=== PATIENT | female | born 1940 | race Caucasian/White ===

== ENCOUNTER 2020-09-17 07:33 | Outpatient (CLI) | payer MEDICARE, SELFPAY ==
--- NOTE | ~2020-09-17 | MM_ITS ---
EXAMINATION: MM screening mert BI w jalen HISTORY: Screening mammogram TECHNIQUE: Craniocaudal and mediolateral oblique 3-D tomosynthesis images were obtained and synthetic 2-D images were generated. CAD analysis was submitted and interpreted. COMPARISON: 08/31/2019, 08/29/2018, 08/11/2017 bilateral digital screening mammogram examinations BREAST PARENCHYMAL COMPOSITION: The breasts are almost entirely fatty. FINDINGS: There is no evidence of suspicious mass, calcification, or architectural distortion to sugg est malignancy in either breast. There has been no suspicious interval change. IMPRESSION: 1. No mammographic evidence of malignancy. 2. Recommend routine screening mammography in one year. BI-RADS Category 1: Negative Reviewed, dictated and finalized at location A. ALT SMOOTHER
== END 2020-09-17 07:34 | disposition home or self-care (01) ==
PROVIDERS: PCP Internal Medicine; Visit Provider Obstetrics & Gynecology Gynecologic Oncology
DX: Z12.31 Encounter for screening mammogram for malignant neoplasm of breast (principal)
CPT/HCPCS: 77063; 77067

== ENCOUNTER 2021-12-04 14:33 | Outpatient (CLI) | payer MEDICARE, SELFPAY ==
--- NOTE | 2021-12-04 14:58 | ECHO_ITS ---
Patient Info Name: Sonay Smith Age: 81 years : 1940 Gender: Female Ht: 67 in Wt: 208 lbs BSA: 2.14 m2 HR: 55 bpm BP: 170 / 80 mmHg Heart Rhythm: Sinus Rhythm Technical Quality: Fair Exam Date: 12/04/2021 3:08 PM Exam Location: [facility] Patient Status: Outpatient Admit Date: 12/04/2021 Staff Ordering Physician: Maura Rashid PA-C Solar Technician: Karlee Nichols RDCS Attending Provider: Maura Rashid PA-C Exam Type: CA echo doppler color flow Study Info Indications G47.31 - PRIMARY SLEEP APNEA Complete two-dimensional, color flow and Doppler transthoracic echocardiogram is performed. Summary 1. Complete two-dimensional, color flow and Doppler transthoracic echocardiogram is performed. 2. Left ventricular chamber dimension is normal. 3. Left ventricular systolic function is normal, estimated at 65-70%. 4. There is no increased left ventricular wall thickness. 5. The left ventricular diastolic function is grade II diastolic dysfunction. 6. Right ventricular chamber dimension is mildly enlarged. 7. Left atrial chamber dimension is moderately enlarged. 8. Right atrial chamber dimension is mildly enlarged. 9. The mitral valve has thickened leaflets and calcified annulus. 10. There is mild tricuspid valve regurgitation. Left Ventricle Left ventricular chamber dimension is normal. Left ventricular systolic function is normal, estimated at 65-70%. There is no increased left ventricular wall thickness. The left ventricular diastolic function is grade II diastolic dysfunction. Right Ventricle Right ventricular chamber dimension is mildly enlarged. Right ventricular systolic function is normal. Left Atria Left atrial chamber dimension is moderately enlarged. Right Atria Right atrial chamber dimension is mildly enlarged. Atrial Septum Intact interatrial septum visualized by color flow imaging. Aortic Valve The aortic valve is trileaflet. There is mild aortic valve sclerosis. There is no aortic valve stenosis. There is trace aortic valve regurgitation. Pulmonic Valve The pulmonic valve is normal. There is no pulmonic valve stenosis. There is trace pulmonic regurgitation. Mitral Valve The mitral valve has thickened leaflets and calcified annulus. There is no mitral valve stenosis. There is trace mitral valve regurgitation. Tricuspid Valve The tricuspid valve leaflets are normal. There is no significant tricuspid valve stenosis. There is mild tricuspid valve regurgitation. No pulmonary hypertension, estimated pulmonary arterial systolic pressure is 31 mmHg. Pericardium/Pleural The pericardium appears normal. There is trivial pericardial effusion. Inferior Vena Cava Normal inferior vena cava with >50% collapse upon inspiration consistent with elevated right atrial pressure, 10 mmHg. Aorta The aortic root size at the sinus of Valsalva is normal. Left Ventricular Outflow Tract Name Value Normal LVOT 2D LVOT Diameter 2.0 cm LVOT Doppler LVOT Peak Gradient 10 mmHg LVOT Mean Gradient 4 mmHg
== END 2021-12-04 14:34 | disposition home or self-care (01) ==
LOC: ANHCARD 14:37
PROVIDERS: PCP Internal Medicine; Visit Provider Physician Assistant
DX: G47.31 Primary central sleep apnea (principal)
CPT/HCPCS: 93306

== ENCOUNTER 2022-03-02 12:19 | Observation (INO) | payer MEDICARE, SELFPAY ==
[2022-03-02] VITALS (27 sets, daily range): BP systolic 108–149; BP diastolic 64–91; PULSE 56–87; RESP 11–32; TEMP 36.4–37.2; O2SAT 80–100; BMI 32.9
--- NOTE | ~2022-03-02 | US_ITS ---
EXAMINATION: US carotid duplex BI DATE: 03/03/2022 11:01 INDICATION: Transient alteration of awareness TECHNIQUE: Grayscale, color Doppler, and pulsed Doppler images of the cervical carotid arteries were obtained. The degree of vessel stenosis is placed in one of the following categories: normal, <50%, 5 0-69%, >=70% but less than near-occlusion, near-occlusion, or total occlusion. Note that percent sten osis relative to normal distal artery lumen diameter is indirectly measured from velocity measurement s as described by Kentrell, et al. Radiology 2003; 229:340-346. COMPARISON: None. FINDINGS: RIGHT: The right common carotid artery (CCA) peak systolic velocity (PSV) is 99 cm/s. The right internal car otid artery (ICA) PSV is 121 cm/s. The right ICA end-diastolic velocity (EDV) is 35 cm/s. The right I CA/CCA PSV ratio is 1.2. Grayscale and color Doppler images yield an estimate of less than 50% diamet er reduction from plaque in the ICA. The external carotid artery (ECA) PSV is 158 cm/s. There is ante grade flow in the right vertebral artery. LEFT: The left CCA PSV is 92 cm/s. The left ICA PSV is 101 cm/s. The left ICA EDV is 33 cm/s. The left ICA/ CCA PSV ratio is 1.1. Grayscale and color Doppler images yield an estimate of less than 50% diameter reduction from plaque in the ICA. The ECA PSV is 167 cm/s. There is antegrade flow in the left verteb ral artery. IMPRESSION: 1. <50% stenosis in the right internal carotid artery. 2. <50% stenosis in the left internal carotid artery. Reviewed, dictated and finalized at location A.
--- NOTE | ~2022-03-02 | XR_ITS ---
EXAMINATION: XR chest 1V portable Exam Date/Time: 03/02/2022 14:45 CDT CLINICAL HISTORY: Syncope, DIZZY, NAUSEA Comparison: 06/07/2006. RESULT: Lines, tubes, and devices: Cholecystectomy clips. Lungs and pleura: Minimal bibasilar subsegmental opacities, usually attributed to atelectasis. Stabl e right hemidiaphragm elevation. Cardiomediastinal silhouette: Stable cardiomediastinal silhouette. Other: No acute osseous or upper abdominal finding. IMPRESSION: No acute cardiopulmonary process Reviewed, dictated and finalized at location K.
--- NOTE | ~2022-03-02 | CT_ITS ---
EXAMINATION: CT brain wo con INDICATION: Transient alteration of awareness COMPARISON: 04/07/2010 TECHNIQUE: Standard unenhanced head CT. The dose-length product (DLP) was 681.00 mGy-cm. The mA was a djusted according to patient size. Iterative reconstruction technique was employed. FINDINGS: There is no acute intraparenchymal hemorrhage. No evidence of mass lesion. No evidence of a cute infarction. There is mild periventricular and subcortical hypodensity probably related to small vessel ischemic disease. There is mild prominence of the sulci and ventricles related to cerebral atr ophy. Intracranial calcified cerebral atherosclerosis is noted. There are no extra-axial collections. There is no mass effect or midline shift. Changes in the globes are likely from ocular lens surgery. The visualized sinuses and mastoid air cells are well aerated. IMPRESSION: 1. No acute intracranial abnormality. 2. Age related findings. Reviewed, dictated and finalized at location A.
--- NOTE | 2022-03-02 12:23 | ECG_ITS ---
Measurements Intervals [place] Rate: 58 P: DC: 0 QRS: 22 QRSD: 110 T: 34 QT: 443 QTc: 438 Interpretive Statements ATRIAL FIBRILLATION WITH SLOW VENTRICULAR RESPONSE INTRAVENTRICULAR CONDUCTION DELAY LOW QRS VOLTAGE IN PRECORDIAL LEADS CANNOT RULE OUT SEPTAL INFARCT, AGE INDETERMINATE BORDERLINE T WAVE ABNORMALITY- DIFFUSE LEADS BASELINE ARTIFACT- I, III, AVL, V3 ABNORMAL ECG Electronically Signed On 03-02-2022 12:59:26 CDT by Say Sotelo D.O.
[2022-03-02 12:39] LABS: Basophils Percent Auto 0.5 % (0.2-1.2); Eosinophils Absolute Auto 0.1 K/mm3 (0-0.3); Eosinophils Percent Auto 0.8 % (0-4.4); Hematocrit 41.2 % (37.0-47.0); Hemoglobin 13.3 g/dL (12.0-15.0); Immature Granulocyte Absolute 0.02 K/mm3 (0.00-0.031); Immature Granulocyte Percent A 0.3 % (0-0.5); Lymphocytes Absolute Auto 0.89 K/mm3 (0.9-3.2); Lymphocytes Percent Auto 11.1 % (18.3-44.2); Mean Corpuscular HGB Conc 32.3 g/dl (32-36); Mean Corpuscular Hemoglobin 32.1 pg (26-34); Mean Corpuscular Volume 99.5 fl (80-100); Mean Platelet Volume 10.9 fl (7.4-10.4); Monocytes Absolute Auto 0.7 K/mm3 (0.1-0.6); Monocytes Percent Auto 8.4 % (2.6-8.5); Neutrophils Absolute Auto 6.3 K/mm3 (1.3-6.7); Neutrophils Percent Auto 78.9 % (45.5-73.1); Platelet Count Result 189 k/mm3 (150-375); Red Blood Count 4.14 M/mm3 (4.2-5.4); Red Cell Distribution Width 13.6 % (11.5-14.5)
[2022-03-02 12:52] LABS: Alanine Aminotransferase 16 U/L (6-35); Albumin Level 3.9 g/dL (3.5-5.1); Alkaline Phosphatase 76 U/L (38-126); Anion Gap 8 mmol/L (8-16); Aspartate Amino Transferase 24 U/L (14-36); Bilirubin,Total 1.2 mg/dL (0.2-1.3); Blood Urea Nitrogen 17 mg/dL (7-17); Calcium 8.8 mg/dL (8.4-10.2); Carbon Dioxide 27 mmol/L (22-30); Chloride 103 mmol/L (98-107); Estimated CRCL calculation 48 ml/min; Estimated Glomerular Filt Rate 60; Glucose 146 mg/dL (65-110); Sodium 138 mmol/L (137-145)
--- NOTE | 2022-03-02 14:24 | ED.SYNCOPE ---
HPI - Syncope General Chief Complaint: Syncope Stated Complaint: syncope, n/v Time Seen by Provider: 03/02/22 14:23 Source: patient and EMS Mode of arrival: EMS Limitations: no limitations History of Present Illness HPI narrative: Patient is 82 years old white female came by ambulance because of syncope and not feeling well. Patient went golfing this morning which is usual for her lasted for 1-1/2-hour, came back home was on a standing position making some food, felt lightheadedness and not feeling well, rested for few minutes then felt like she have to go to the bathroom, while sitting on the toilet started having more lightheadedness and dizziness, called for help then blacked out for about 1 minute. Subsequently patient developed generalized weakness dry heaves, vomiting at least 3 times. Currently feeling anxious about what happened. History of paroxysmal A. fib, had history of cardioversion. Related Data Home Medications Medication Instructions Recorded Confirmed flecainide 100 mg tablet 100 mg PO Q12H 05/07/20 09/08/21 ascorbate calcium (vitamin C) 500 500 mg PO DAILY 02/27/21 09/08/21 mg tablet carboxymethylcellulose sodium 1 drp EACH EYE BID 02/27/21 09/08/21 losartan 25 mg tablet 12.5 mg PO DAILY 02/27/21 09/08/21 Allergies Allergy/AdvReac Type Severity Reaction Status Date / Time nalbuphine Allergy Mild LOWER Verified 03/02/22 12:37 BLOOD PRESSURE adhesive Allergy Unknown BUMPS Verified 03/02/22 12:37 UNDER TAPE apixaban Allergy Unknown Unknown Verified 03/02/22 12:37 aspirin Allergy Unknown Unknown Verified 03/02/22 12:37 Beta-Blockers Allergy Unknown Unknown Verified 03/02/22 12:37 (Beta-Adrenergic Bloc celecoxib Allergy Unknown Unknown Verified 03/02/22 12:37 ibuprofen Allergy Unknown Unknown Verified 03/02/22 12:37 latex Allergy Unknown Unknown Verified 03/02/22 12:37 metoprolol Allergy Unknown Unknown Verified 03/02/22 12:37 naproxen Allergy Unknown Unknown Verified 03/02/22 12:37 NSAIDS (Non-Steroidal Allergy Unknown Unknown Verified 03/02/22 12:37 Anti-Inflamma rivaroxaban Allergy Unknown Unknown Verified 03/02/22 12:37 Sulfa (Sulfonamide Allergy Unknown Unknown Verified 03/02/22 12:37 Antibiotics) NONSTEROIDAL Allergy Unknown ASTHMA/RESP Uncoded 09/08/21 08:54 DISTRESS Review of Systems Review of Systems: All systems reviewed & are unremarkable except as noted in HPI and below PMFSH Past Medical History Medical History Atrial fib/flutter, transient cardioverted twice, last in 2017 Central sleep apnea GERD (gastroesophageal reflux disease) AGNES on CPAP Osteoarthritis of left knee Ovarian cancer Surgical History Surgical History History of cataract surgery History of cholecystectomy History of hysterectomy S/P T&A (status post tonsillectomy and adenoidectomy) Family History Family History Mother Family history of thyroid disease Family history of cardiac disorder Sibling Hypertension Father Family history of heart disease in male family member before age 55 Patient's father is Social History Social History Social History: , 2 grown children, grandchildren who visit often; plays golf, stays active. 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 Smoking status: Never smoker Gender identity (if verbalized by the patient): Female Exam Narrative: General appearance: Well-developed, well-nourished Skin: Normal color Head: Normocephalic, nontraumatic Eyes: Clear conjunctiva ENT: Oropharynx normal, ears normal, nose normal Neck: Supple, nontender Chest and respiratory: Airway patent, no respiratory distress, no accessory
[2022-03-02 15:32] LABS: Troponin I < 0.012 ng/mL (0.000-0.034)
[2022-03-02] MEDS: ENOXAPARIN 100 MG/ML SYRINGE 90 MG SUB-Q (15:38)
[2022-03-02 15:50] LABS: Appearance Urine Clear (Clear); Bilirubin Urine Negative (Negative); Blood Urine Negative (Negative); Color Urine Yellow (Yellow); Glucose Urine UA Negative (Negative); Ketones Urine Negative (Negative); Leukocyte Esterase Ur Negative LEU/UL (Negative); Nitrate Urine Negative (Negative); Protein Urine Negative (Negative); Urobilinogen Urine 0.2 mg/dL (<2.0)
[2022-03-02 15:59] LABS: Partial Thromboplastin Time 29.6 SECONDS (22.3-36.8); Prothrombin Time 13.2 Seconds (11.1-14.7)
[2022-03-02 16:00] LABS: Add Urine Microscopic? NO
[2022-03-02 16:28] LABS: Troponin I < 0.012 ng/mL (0.000-0.034)
--- NOTE | 2022-03-02 17:53 | PC.NURSE ---
This patient, Sonya Smith, was admitted to IMU Room 200-01 at 1742. Patient/family oriented to hospital policies and general routines including ID bracelet, bed and alarms, visiting hours, pain management, procedures, bathroom and other care routines, personal items, smoking policy, room service/diet, and visiting hours. Information on how to activate the Rapid Response Team has been discussed. Patient/Family are encouraged to report perceived risks to care and to ask questions if they do not understand what they are told or what they should do.
[2022-03-02 19:19] LABS: Troponin I < 0.012 ng/mL (0.000-0.034)
--- NOTE | 2022-03-02 20:21 | PM.IMHP ---
H&P: HPI History of Present Illness Date/Time: Patient was placed observation status for expected length of stay less than 23 hours for management, will plan to re-evaluate tomorrow for improvement. 03/02/22 20:21 Chief Complaint: Syncopal episode Narrative: Ms. Smith is a an 82-year-old female who presented emergency room with complaints of syncopal episode. 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 Patient states after she was golfing she was feeling fine and went home to make doubled legs. Patient states that she decided to take a warm shower took her shower and then decided to start making the double legs. Patient states she was still feeling very well and then all of a sudden she states that she ?just did not feel well. ? Patient states she sat down and still felt odd and decided to go down the cervantes. Patient states that she walked down the cervantes and decided she needed to have a bowel movement so she went to the bathroom and strained to have a bowel movement quickly because she was not feeling well and called out to her [id number] because she felt like she was going to pass out. Patient states that her [id number] came into the bathroom and grabbed her and she lost consciousness for less than 1 minute. Patient states she has never had episode like this before. Patient denied any chest pain, shortness a breath, or palpitations prior to the event. Patient denies any history of seizure disorder. Patient states after the event she did have multiple episodes of retching while in the EMS. Patient states she does have a known history of atrial fibrillation and has undergone cardioversion twice. Patient states as far she knows she had been in normal sinus rhythm. 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 Patient states that she follows with Cardiology on a routine basis. Review of Systems Review of Systems: A 12 point review of systems was completed patient all pertinent positive and negative per HPI the remainder are unremarkable. [facility] Past Medical History Medical History Atrial fib/flutter, transient cardioverted twice, last in 2017 Central sleep apnea GERD (gastroesophageal reflux disease) AGNES on CPAP Osteoarthritis of left knee Ovarian cancer Surgical History Surgical History History of cataract surgery History of cholecystectomy History of hysterectomy S/P T&A (status post tonsillectomy and adenoidectomy) Family History Family History (Updated 03/02/22 @ 18:06 by Cady Yoder RN) Mother Family history of cardiac disorder Congestive heart failure Pacemaker Sibling Hypertension Cerebrovascular accident Congestive heart failure Father Family history of heart disease in male family member before age 55 Patient's father is Acute myocardial infarction Other Family history of thyroid disease SVT (supraventricular tachycardia) Social History Social History Social History: , 2 grown children, grandchildren who visit often; plays golf, stays active. 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 Smoking status: Never smoker Alcohol intake: never Substance use: never Gender identity (if verbalized by the patient): Female Spiritual care concerns: No Meds Home Medications and Allergies Home Medications Medication Instructions Recorded Confirmed Type flecainide 100 mg tablet 100 mg PO Q12H 05/07/20 03/02/22 History ascorbate calcium (vitamin C) 500 500 mg PO DAILY 02/27/21 03/02/22 History mg tablet carboxymethylcellulose sodium 1 drp EACH EYE Q12H 02/27/21 03/02/22 History losartan 25
[2022-03-02] MEDS: WATER FOR IRRIGATION, STERILE 1,000 ML BOTTLE 1000 ML (20:53)
[2022-03-02] MEDS: ARTIFICIAL TEARS OPHTH SOLN 15 ML BOTTLE 1 DROP EACH EYE (20:54)
[2022-03-02] MEDS: FLECAINIDE ACETATE 100 MG TABLET PO (20:54)
[2022-03-03] VITALS (15 sets, daily range): BP systolic 105–139; BP diastolic 43–75; PULSE 46–75; RESP 20; TEMP 36.3–37.6; O2SAT 98–100
[2022-03-03 04:54] LABS: Anion Gap 3 mmol/L (8-16); Blood Urea Nitrogen 14 mg/dL (7-17); Calcium 8.2 mg/dL (8.4-10.2); Carbon Dioxide 30 mmol/L (22-30); Chloride 106 mmol/L (98-107); Estimated CRCL calculation 56 ml/min; Estimated Glomerular Filt Rate > 60; Glucose 101 mg/dL (65-110); Magnesium 2.1 mg/dL (1.6-2.3); Potassium 4.1 mmol/L (3.4-5.0); Sodium 139 mmol/L (137-145)
[2022-03-03 04:58] LABS: Basophils Absolute Auto 0.1 K/mm3 (0.0-0.1); Eosinophils Absolute Auto 0.1 K/mm3 (0-0.3); Eosinophils Percent Auto 1.3 % (0-4.4); Hematocrit 40.5 % (37.0-47.0); Hemoglobin 12.8 g/dL (12.0-15.0); Immature Granulocyte Absolute 0.02 K/mm3 (0.00-0.031); Immature Granulocyte Percent A 0.3 % (0-0.5); Lymphocytes Percent Auto 19.9 % (18.3-44.2); Mean Corpuscular HGB Conc 31.6 g/dl (32-36); Mean Corpuscular Hemoglobin 31.6 pg (26-34); Mean Platelet Volume 11.2 fl (7.4-10.4); Monocytes Absolute Auto 0.7 K/mm3 (0.1-0.6); Monocytes Percent Auto 10.5 % (2.6-8.5); Neutrophils Absolute Auto 4.7 K/mm3 (1.3-6.7); Platelet Count Result 197 k/mm3 (150-375); Red Blood Count 4.05 M/mm3 (4.2-5.4); Red Cell Distribution Width 13.6 % (11.5-14.5); White Blood Count 7.1 K/mm3 (4.5-10.0)
[2022-03-03] MEDS: ENOXAPARIN 100 MG/ML SYRINGE 90 MG SUB-Q (05:43)
[2022-03-03] MEDS: ARTIFICIAL TEARS OPHTH SOLN 15 ML BOTTLE 1 DROP EACH EYE (09:03)
[2022-03-03] MEDS: ASCORBIC ACID 500 MG TABLET PO (09:04)
[2022-03-03] MEDS: FLECAINIDE ACETATE 100 MG TABLET PO (09:04)
[2022-03-03] MEDS: LOSARTAN POTASSIUM 12.5 MG TABLET PO (09:04)
[2022-03-03] MEDS: CHOLECALCIFEROL 1,000 UNITS TABLET 1000 UNITS PO (09:04)
[2022-03-03 09:06] LABS: NT Pro B Type Natriuretic Pept 707 pg/mL (5-100)
--- NOTE | 2022-03-03 10:15 | PM.DS ---
DS: Admitting Diagnosis Discharge Date 03/03/22 1015 Admitting Diagnosis Syncope/recurrent Afib DS: Discharge Diagnosis Discharge Diagnosis (1) Syncope and collapse: Code(s): R55 - Syncope and collapse Status: Acute Assessment and Plan: Etiology unknown at this time. Syncope could have been secondary to a vasovagal episode since patient was having a bowel movement when it occurred. Unknown if patient could have also had atrial fibrillation with rapid ventricular response. At this point time cardiology has been consult and appreciate further recommendations. Will have orthostatic blood pressure and pulses performed every shift. Will resume patient's home medications. carotid doppler <50% stenosis bilaterally Restart on Xarelto Follow up with cards in 2-4 weeks (2) A-fib: Qualifiers: Atrial fibrillation type: paroxysmal Qualified Code(s): I48.0 - Paroxysmal atrial fibrillation Code(s): I48.91 - Unspecified atrial fibrillation Status: Acute Assessment and Plan: Patient is on flecainide for her atrial fibrillation. At this point time patient's EKG is showing atrial fibrillation with a slow ventricular response. Cardiology has been consult and appreciate further recommendations. Patient is not on any anticoagulation at this time so will place patient on full-dose Lovenox. (3) Central sleep apnea: Code(s): G47.31 - Primary central sleep apnea Status: Acute Assessment and Plan: Will resume patient's home CPAP. DS: Summary Hospital Course Hospital Course: Patient is an 82-year-old female with a past medical history of AFib a flutter, AGNES, GERD who presented to the ED after a syncopal episode. Patient stated that she when out and played some golf when it was cool outside but did not drink a whole lot a water. She then went home took a hot shower and made some deviled eggs. As that was happening she stated that she had to have a bowel movement ran to the bathroom when she did she was bearing down and had a syncopal episode where she lost consciousness for about 1 minute. Upon arrival to the ED she was noted to be in AFib. Patient has seen Dr. Lacey recently and she also had an echo recently that had no acute changes. Patient is currently on flecainide. Cardiology was consulted and suggested patient be started back on her anticoagulation and to follow-up in the office in 2-4 weeks. Patient also states that she has had a quite a few cardioversion. Patient currently denies any chest pain, shortness of breath, nausea, vomiting, diarrhea, constipation, weakness or fatigue. Orthostatic blood pressures were negative, carotid Doppler showed less than 50% stenosis bilaterally. Patient feels good and is ready for discharge. Patient is stable per labs and vital signs. Status at Discharge Functional status at discharge: independent ambulation Overall status at discharge: patient is progressing back to baseline Time Spent with Patient Time attestation: Total time spent providing and/or coordinating discharge services: 36 minutes Time spent: Greater than 30 minutes Specific discharge activities: Diagnostic testing, chart review, developing a treatment plan, education, care coordination documentation, physical exam, result review Exam Const: General: cooperative, healthy appearing, no acute distress, well developed, alert and awake Nutritional Appearance: well nourished Orientation/consciousness: patient oriented x3 Limitations: no limitations HENMT: Head: normal to inspection Ears: hearing grossly normal bilaterally General nose exam: Normal external nose present Mouth: Yes Normal oral and palatal mucosa present, Yes lip normal and Yes tongue normal Teeth and gingiva: abnormal tooth and associated gingiva and poor dentition Eyes: General: appearance normal, both eyes and all related structures Neck: Neck: normal visual inspection, full ROM, trachea midline and sup
--- NOTE | 2022-03-03 12:55 | PM.CNCAR ---
Assessment and Plan Assessment and plan (1) A-fib: Qualifiers: Atrial fibrillation type: paroxysmal Qualified Code(s): I48.0 - Paroxysmal atrial fibrillation Code(s): I48.91 - Unspecified atrial fibrillation Status: Acute Assessment and Plan: Patient currently in AFib heart rate control, asymptomatic. Very unlikely involved with patient's vasovagal syncopal event. No high-grade AV block and or prolonged pauses on telemetry thus far. Patient states she would like to resume her anticoagulation to reduce stroke risk. We discussed concerns with regards to presentation, fall risk although suspect related to degree of intravascular volume depletion and vasovagal syncope. Continue current medical therapy. May continue flecainide at present dose. Follow-up with Dr. Lacey in the office in 2-4 weeks. Stable from cardiac perspective with disposition per hospitalist service. If patient stable without recurrent symptoms with ambulation she may be discharged from cardiac perspective. Discussed the patient and her [id number] bedside who witnessed this episode, all questions answered to their satisfaction. They agree with plan of care and recommendations. (2) Vasovagal syncope: Code(s): R55 - Syncope and collapse Status: Acute Assessment and Plan: Patient gives a very good description for vasovagal etiology. Patient has been call early in the day not drinking much fluid took a very hot shower standing became symptomatic felt urgent need to have a bowel movement sat down on the toilet and strained with subsequent loss of consciousness. No anginal symptoms, negative serial troponins. No significant orthostasis although patient asymptomatic at this time. Monitor BP closely at home, rise slowly from seated position to avoid risk for falls and injuries. Push hydration. Avoid high heat and humidity. Avoid playing golf for next week to ensure no recurrent episodes or symptoms. May consider holding losartan for the time being and monitor BP at home and if significant elevated notify the office for further recommendations. (3) AGNES on CPAP: Code(s): G47.33 - Obstructive sleep apnea (adult) (pediatric); Z99.89 - Dependence on other enabling machines and devices Status: Acute Assessment and Plan: Compliance of CPAP. History of Present Illness History of Present Illness Consult date/time: Date of service: 03/03/22 12:55 Cardiology consultation at the request of Nichole Matute of the [facility] service for opinion regarding syncope and atrial fibrillation. Requesting physician: Nichole Matute, MICHELLE Consult reason: atrial fibrillation and Other (Syncope) Reason For Visit: Syncope, A.Fib w/normal ventricular response Narrative: Patient is a very pleasant 82-year-old female followed by Dr. Lacey as an outpatient past medical history significant for paroxysmal atrial fibrillation and atrial flutter status post prior cardioversion, history of normal coronary anatomy left heart catheterization December 2016 had taken herself off anticoagulation several months ago, AGNES on CPAP who was in her usual state of health when she presented to the ER after suffering a syncopal episode. Patient states she had been feeling well and earlier in the morning had picked up in order at [employer] followed by 8 holes of golf. She came home took a hot shower and then began to prepare devilled eggs. Mi standing she began to feel less well, lightheaded, Od and so began to ambulate down hallway and had the sudden urge to have a bowel movement. She states she then rushed to the bathroom and as she continued to feel poorly she states she began to strain to her her bowel movement up and then began to feel even less well calling for her [id number] who then came in held her. He states that she was out for at least a minute and then came 2 but was somewhat confused initially. He helped her with difficulty
== END 2022-03-03 15:47 | disposition home or self-care (01) ==
LOC: ANHED 14:59 → ANHIMU 03-03 14:53
PROVIDERS: Family Medicine; Nurse Practitioner Adult Health; Admitting Provider Hospitalist; Emergency Provider Emergency Medicine; PCP Internal Medicine; Visit Provider Nurse Practitioner
DX: R55 Syncope and collapse (principal); R11.2 Nausea with vomiting, unspecified; K21.9 Gastro-esophageal reflux disease without esophagitis; Z85.43 Personal history of malignant neoplasm of ovary; I48.0 Paroxysmal atrial fibrillation; G47.31 Primary central sleep apnea; Z99.89 Dependence on other enabling machines and devices
CPT/HCPCS: 36415; 70450; 71045; 80048; 80053; 81003; 83735; 83880; 84484; 85025; 85610; 85730; 93005; 93880; 96372; 99285; A9270; G0378; J1650

== ENCOUNTER 2023-06-07 07:44 | Outpatient (CLI) | payer MEDICARE, SELFPAY ==
--- NOTE | ~2023-06-07 | MM_ITS ---
EXAMINATION: MM screening mert BI w jalen HISTORY: Screening TECHNIQUE: Craniocaudal and mediolateral oblique 3-D tomosynthesis images were obtained and synthetic 2-D images were generated. CAD analysis was submitted and interpreted. COMPARISON: Comparison to multiple prior studies sequentially, with oldest reviewed study dated 07/22. BREAST PARENCHYMAL COMPOSITION: There are scattered areas of fibroglandular density. FINDINGS: There is no evidence of suspicious mass, calcification, or architectural distortion to sugg est malignancy in either breast. There has been no suspicious interval change. IMPRESSION: 1. No mammographic evidence of malignancy. 2. Recommend routine screening mammography in one year. BI-RADS Category 1: Negative Reviewed, dictated and finalized at location A.
== END 2023-06-07 07:45 | disposition home or self-care (01) ==
LOC: ANHIMG 07:48
PROVIDERS: PCP Internal Medicine; Visit Provider Internal Medicine
DX: Z12.31 Encounter for screening mammogram for malignant neoplasm of breast (principal)
CPT/HCPCS: 77063; 77067

== ENCOUNTER 2024-05-05 08:12 | Outpatient (CLI) | payer MEDICARE, SELFPAY ==
--- NOTE | ~2024-05-05 | MR_ITS ---
MRI of the right ankle Clinical history: Pain Technique: Coronal proton-density and proton-density fat-sat images, axial proton-density and proton- density fat-sat images, and sagittal proton-density and proton-density fat-sat images were acquired. Findings: Syndesmotic ligaments are intact. There is thickening and increased signal of the anterior talofibular ligament. Posterior talofibular ligament ligament appears to be completely torn. Calcaneo fibular ligament is poorly delineated, likely torn. Deltoid ligament is intact. Medial flexor tendons, peroneus longus tendon, anterior extensor tendons, and Achilles tendon are int act. Possible focal longitudinal split tear of the peroneus brevis tendon at the tip of the lateral m alleolus. There is minimal tenosynovitis of the talus posterior tendon sheath distally. There is no osteochondral lesion of the talar dome. There is advanced degenerative change of the ante rior subtalar facet. There is advanced degenerative change of the talonavicular and naviculocuneiform articulations. There is focal degenerative change of the calcaneocuboid articulation. No acute fract ure seen. Plantar fascia intact with small plantar calcaneal spur. There is diffuse subcutaneous soft tissue ed juanita about the ankle. No soft tissue mass or fluid collection evident. Impression: Probable complete tears of the posterior talofibular and calcaneofibular ligaments. Probable chronic sprain or posttraumatic change of the anterior talofibular ligament, which is thickened and hyperinte nse. Diffuse subcutaneous soft tissue edema, nonspecific. Scattered degenerative changes, as above. Possible focal longitudinal split tear of the peroneus brevis tendon at the level of the tip of the l ateral malleolus. Reviewed, dictated and finalized at location . Impression: Probable complete tears of the posterior talofibular and calcaneofibular ligame nts. Probable chronic sprain or posttraumatic change of the anterior talofibula r ligament, which is thickened and hyperintense. Diffuse subcutaneous soft tissue edema, nonspecific. Scattered degenerative changes, as above. Possible focal longitudinal split tear of the peroneus brevis tendon at the lev el of the tip of the lateral malleolus.
== END 2024-05-05 08:13 ==
LOC: GOSHIMG 08:13
PROVIDERS: PCP Internal Medicine; Visit Provider Orthopaedic Surgery
DX: M19.071 Primary osteoarthritis, right ankle and foot (principal)
CPT/HCPCS: 73721

== ENCOUNTER 2024-11-05 15:58 | Emergency (ER) | payer MEDICARE, SELFPAY ==
[2024-11-05 16:01] VITALS: BP 169/90; PULSE 98; RESP 18; TEMP 36.7; O2SAT 99
--- NOTE | 2024-11-05 17:02 | PC.NURSE ---
patient to desk stating she was going to follow up with the MD. advised to come back to ER is symptoms progress.
== END 2024-11-05 18:38 | disposition left against medical advice (07) ==
PROVIDERS: PCP Internal Medicine
DX: R19.7 Diarrhea, unspecified (principal)
CPT/HCPCS: 99199

== ENCOUNTER 2024-11-06 14:26 | Outpatient (CLI) | payer MEDICARE, SELFPAY ==
[2024-11-06 15:45] LABS: Basophils Absolute Auto 0.1 K/mm3 (0.0-0.1); Eosinophils Absolute Auto 0.2 K/mm3 (0-0.3); Eosinophils Percent Auto 2.7 % (0-4.4); Hematocrit 42.3 % (37.0-47.0); Hemoglobin 13.5 g/dL (12.0-15.0); Immature Granulocyte Absolute 0.01 K/mm3 (0.00-0.031); Immature Granulocyte Percent A 0.1 % (0-0.5); Lymphocytes Absolute Auto 1.88 K/mm3 (0.9-3.2); Lymphocytes Percent Auto 27.9 % (18.3-44.2); Mean Corpuscular HGB Conc 31.9 g/dl (32-36); Mean Corpuscular Hemoglobin 31.5 pg (26-34); Mean Corpuscular Volume 98.8 fl (80-100); Monocytes Absolute Auto 0.9 K/mm3 (0.1-0.6); Neutrophils Absolute Auto 3.7 K/mm3 (1.3-6.7); Neutrophils Percent Auto 54.3 % (45.5-73.1); Platelet Count Result 213 k/mm3 (150-375); Red Blood Count 4.28 M/mm3 (4.2-5.4); Red Cell Distribution Width 13.6 % (11.5-14.5); White Blood Count 6.7 K/mm3 (4.5-10.0)
[2024-11-06 16:05] LABS: Alanine Aminotransferase 13 U/L (6-35); Albumin Level 4.1 g/dL (3.5-5.1); Alkaline Phosphatase 71 U/L (38-126); Anion Gap 5 mmol/L (4-12); Aspartate Amino Transferase 22 U/L (14-36); Bilirubin,Total 1.2 mg/dL (0.2-1.3); Blood Urea Nitrogen 10 mg/dL (7-17); Calcium 9.3 mg/dL (8.4-10.2); Carbon Dioxide 32 mmol/L (22-30); Chloride 103 mmol/L (98-107); Estimated Glomerular Filt Rate > 60; Glucose 97 mg/dL (65-110); Potassium 4.2 mmol/L (3.4-5.0); Sodium 140 mmol/L (137-145)
== END 2024-11-06 14:27 | disposition home or self-care (01) ==
LOC: ANHLAB 14:29
PROVIDERS: PCP Internal Medicine; Visit Provider Internal Medicine
DX: R19.5 Other fecal abnormalities (principal)
CPT/HCPCS: 36415; 80053; 85025

== ENCOUNTER 2024-11-07 08:11 | Outpatient (CLI) | payer MEDICARE, SELFPAY ==
[2024-11-07 10:31] LABS: Add Urine Microscopic? YES; Appearance Urine Clear (Clear); Bacteria Urine None Seen /hpf; Bilirubin Urine Negative (Negative); Blood Urine Negative (Negative); Color Urine Yellow (Yellow); Glucose Urine UA Negative (Negative); Ketones Urine Negative (Negative); Leukocyte Esterase Ur 1+ LEU/UL (Negative); Nitrate Urine Negative (Negative); Non Pathogenic Casts 0-2; Protein Urine Negative (Negative); RBC Urine 0-2 /hpf (0-2); Specific Grav Ur 1.014 (1.001-1.035); Squamous Epithelial Cell Urine Occasional /hpf (Few); Urobilinogen Urine 0.2 mg/dL (<2.0); WBC Urine 21-50 /hpf (0-3); pH Urine 5.5 (5.0-9.0)
[2024-11-07 11:35] LABS: Toxigenic C. Diff POSITIVE (NEGATIVE)
== END 2024-11-07 08:12 | disposition home or self-care (01) ==
LOC: ANHLAB 08:12
PROVIDERS: PCP Internal Medicine; Visit Provider Internal Medicine
DX: R19.5 Other fecal abnormalities (principal)
CPT/HCPCS: 81001; 87493